=== PATIENT | male | born 1990 ===

== ENCOUNTER 2018-11-04 02:09 | Emergency (ER) | payer OTHER ==
[2018-11-04 02:32] VITALS: BP 131/77; PULSE 75; RESP 16; TEMP 98.4; O2SAT 100
[2018-11-04] MEDS ORDERED: cefTRIAXone (Rocephin) 250 mg Inj IM ONE (03:36)
--- NOTE | 2018-11-04 03:39 | ED PDOC ---
HPI: Male Pain Time Seen by Provider: 11/04/18 03:25 Chief Complaint (Nursing): Male Genitourinary Chief Complaint (Provider): penile discharge History Per: Patient History/Exam Limitations: no limitations Onset/Duration Of Symptoms: Days (2) Current Symptoms Are (Timing): Still Present Additional Complaint(s): 28 y/o male presents for evaluation of clear penile discharge x 2 days. Associated increase urinary frequency. Patient admits to similar symptoms in past when he had Chlamydia; admits to having unprotected sex on Wednesday. Denies fever, nausea/vomiting, abdominal pain, testicular pain/swelling, penile pain, dysuria, hematuria Past Medical History Reviewed: Historical Data, Nursing Documentation, Vital Signs Vital Signs: Last Vital Signs Temp 98.4 F 11/04/18 02:30 Pulse 75 11/04/18 02:30 Resp 16 11/04/18 02:30 BP 131/77 11/04/18 02:30 Pulse Ox 100 11/04/18 02:30 Primary Care Provider: FAMILY PROVIDER,NO - Medical History PMH: No Chronic Diseases - Family History Family History: States: No Known Family Hx - Allergies Allergies/Adverse Reactions: Allergies Allergy/AdvReac Type Severity Reaction Status Date / Time No Known Allergies Allergy Verified 11/04/18 02:32 Review of Systems ROS Statement: Except As Marked, All Systems Reviewed And Found Negative Genitourinary Male: Positive for: Frequency, Penile Discharge Physical Exam - Reviewed Nursing Documentation Reviewed: Yes Vital Signs Reviewed: Yes - Physical Exam Appears: Positive for: Well, Non-toxic, No Acute Distress Cardiovascular/Chest: Positive for: Regular Rate, Rhythm Respiratory: Positive for: Normal Breath Sounds Gastrointestinal/Abdominal: Positive for: Normal Exam Male Genital Exam: Positive for: urethral discharge (clear, minimal), other (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 Negative for: scrotum tenderness (R), scrotum tenderness (L), testicular tenderness (R), testicular tenderness (L) - ECG O2 Sat by Pulse Oximetry: 100 - Progress ED Course And Treament: -udip -gc/chlamydia Patient would like prophylactic STD treatment today Rocephin IM, zithromax PO ordered Patient was educated on safe sex practices Advised partner will need treatment if positive Follow up PMD within 2-3 days Return precautions given Disposition - Clinical Impression Clinical Impression: Penile discharge, Urethritis - Patient ED Disposition Is Patient to be Admitted: No Counseled Patient/Family Regarding: Studies Performed, Diagnosis, Need For Followup - Disposition Disposition: Routine/Home Disposition Time: 03:39 Condition: IMPROVED Instructions: Screening for Sexually Transmitted Infections, Urethritis
[2018-11-04] MEDS ORDERED: Sterile Water 10 ML IV ONE (03:48)
[2018-11-04] MEDS ORDERED: cefTRIAXone (Rocephin) 250 mg Inj ONE (03:48)
== END 2018-11-04 04:00 | disposition home or self-care (01) ==
LOC: H.ER 02:09
DX: N34.2 Other urethritis (principal); R36.9 Urethral discharge, unspecified
CPT/HCPCS: 87491; 87591; 96372; 99283; J0696